=== PATIENT | female | born 1985 | race Caucasian/White ===

== ENCOUNTER → 2017-03-31 | Outpatient (CLI) | payer OTHER ==
--- NOTE | 2017-03-31 14:17 | KCIC ---
PROCEDURE Two-view chest dated 03/31/2017. HISTORY cough. History bronchiolitis. TECHNIQUE PA and lateral views obtained. COMPARISON None. FINDINGS Heart and mediastinal contours within normal limits. Lungs are clear without focal consolidation. Vascular interstitium within normal limits. No pleural effusion or pneumothorax. IMPRESSION No acute radiographic abnormality. Electronically signed by: Lefty Holden (March 31, 2017 14:16:01)
== END | disposition home or self-care (01) ==
LOC: KCIC 13:57
PROVIDERS: ATTEND Family Medicine
DX: R05 Cough (principal)
CPT/HCPCS: 71020